=== PATIENT | male | born 1955 | race Caucasian/White ===

== ENCOUNTER 2019-03-14 14:13 | Emergency (ER) | payer MEDICAID ==
[~2019-03-14] VITALS: Ht 170.2 cm; Wt 63.5 kg
[~2019-03-14 14:13] MED LIST: CHOL20007 PO; CIPR-173 PO; DIAZ2TAB PO; DOCU-94 PO; ENAL2.5T PO; GABA-339 PO; LISI-646 PO; METO1TAB9 PO
[2019-03-14 16:01] VITALS: BP 149/86
[2019-03-14] MEDS ORDERED: MEPERIDINE HCL (50 MG/ML) 1 ML VIAL IM ONE (17:45)
[2019-03-14] MEDS ORDERED: PROMETHAZINE HCL 25 MG/ML 1ML IM ONE (17:45)
== END 2019-03-14 18:20 | disposition home or self-care (01) ==
LOC: ER 14:13
DX: M25.511 Pain in right shoulder (principal); G89.29 Other chronic pain; M19.011 Primary osteoarthritis, right shoulder; E11.9 Type 2 diabetes mellitus without complications; I10 Essential (primary) hypertension; Z79.899 Other long term (current) drug therapy
CPT/HCPCS: 73030; 96372; 99283; J2175; J2550

== ENCOUNTER 2019-05-28 16:45 | Emergency (ER) | payer MEDICAID ==
[~2019-05-28] VITALS: Ht 170.2 cm; Wt 54.4 kg
[2019-05-28 17:02] VITALS: BP 158/92
[2019-05-28 18:58] LABS: Albumin 3.2 g/dL (3.4-5.0); Basophils # (auto) 0.1 uL; Calcium 8.1 mg/dL (8.5-10.1); Eosinophils # (auto) 0.3 uL; Monocytes # (auto) 0.9 uL; Potassium 4.4 mmol/L (3.5-5.1)
[2019-05-28 19:04] LABS: BUN/Creatinine Ratio 16.4; Bilirubin, Total 0.4 mg/dL (0.2-1.0); Total Protein 8.1 g/dL (6.4-8.2)
[2019-05-28 19:06] LABS: Basophils % (auto) 0.9 % (0.0-2.0); Eosinophils % (auto) 3.1 % (0.0-7.0); Mean Corpuscular Hemoglobin 25.8 pg (28.0-32.0); Mean Corpuscular Hgb Conc. 31.5 g/dL (32.0-36.0); Mean Corpuscular Volume 82.1 fL (80.0-100.0); Monocytes % (auto) 9.1 % (0.0-12.0); Neutrophils % (auto) 67.9 % (37.0-80.0); Nucleated Red Blood Cells % 0.3 %; Platelet Count (auto) 390 10^3/uL (140-450); Red Blood Cells 4.26 10^6/uL (4.5-5.90); Red Cell Distribution Width 17.3 % (11.8-14.3); White Blood Cell 10.3 10^3/uL (4.4-10.8)
[2019-05-28] MEDS ORDERED: ASPirin-EC 81 mg tab PO ONE (20:00)
[2019-05-28] MEDS ORDERED: ONDANSETRON HCL 4 MG/2 ML VIAL IV ONE (21:45)
[2019-05-28] MEDS ORDERED: MORPHINE SULFATE 4 MG/ML SYR/VIAL IV ONE (21:45)
== END 2019-05-28 22:50 | disposition home or self-care (01) ==
LOC: ER 16:45
DX: R07.89 Other chest pain (principal); R79.89 Other specified abnormal findings of blood chemistry; M79.89 Other specified soft tissue disorders; E11.9 Type 2 diabetes mellitus without complications; I10 Essential (primary) hypertension; Z79.899 Other long term (current) drug therapy
CPT/HCPCS: 36415; 71045; 73130; 80053; 84484; 85025; 96374; 96375; 99284; J2270; J2405

== ENCOUNTER 2019-08-19 21:32 | Emergency (ER) | payer MEDICAID ==
[~2019-08-19] VITALS: Ht 170.2 cm; Wt 56.7 kg
[2019-08-20 02:01] VITALS: BP 161/98
[2019-08-20] MEDS ORDERED: methylPREDNISolone SOD SUCC 125 MG/2 ML VL IM ONE (02:15)
[2019-08-20] MEDS ORDERED: KETOROLAC TROMETH 60MG/2ML VIAL IM ONE (02:15)
== END 2019-08-20 02:02 | disposition home or self-care (01) ==
LOC: ER 21:34
DX: S53.401A Unspecified sprain of right elbow, initial encounter (principal); M25.421 Effusion, right elbow; E11.9 Type 2 diabetes mellitus without complications; I10 Essential (primary) hypertension; F17.210 Nicotine dependence, cigarettes, uncomplicated; Z79.899 Other long term (current) drug therapy; W01.0XXA Fall on same level from slipping, tripping and stumbling without subsequent striking against object, initial encounter; Y93.89 Activity, other specified; Y92.89 Other specified places as the place of occurrence of the external cause; Y99.8 Other external cause status
CPT/HCPCS: 71101; 73030; 73080; 96372; 99284; J1885; J2930

== ENCOUNTER 2020-12-03 14:54 | Emergency (ER) | payer MEDICAID ==
[~2020-12-03] VITALS: Ht 170.2 cm; Wt 54.4 kg
[~2020-12-03 14:54] MED LIST changes: -ENAL2.5T PO; +ENAL2.5T7 PO; -LISI-646 PO; +LISI20TA28 PO
[2020-12-03 15:04] VITALS: BP 130/88
== END 2020-12-03 19:49 | disposition left against medical advice (07) ==
LOC: ER 14:54
DX: Z46.6 Encounter for fitting and adjustment of urinary device (principal); Z53.21 Procedure and treatment not carried out due to patient leaving prior to being seen by health care provider